=== PATIENT | female | born 1945 | race Caucasian/White ===

== ENCOUNTER 2017-11-13 14:32 | Emergency (ER) | payer MEDICARE, MEDICAID ==
[~2017-11-13] VITALS: Ht 149.9 cm; Wt 67.1 kg
[2017-11-13] MEDS ORDERED: IPRATROPIUM BROMIDE 0.5 MG/2.5 ML NEBU NEB ONE (15:00)
[2017-11-13] MEDS ORDERED: ONDANSETRON 4 MG/2 ML VIAL IV ONE (15:00)
[2017-11-13] MEDS ORDERED: IV NORMAL SALINE 500 ML BAG IV ONE (15:00)
[2017-11-13] MEDS ORDERED: ALBUTEROL SULFATE 2.5 MG/3 ML NEBU NEB ONE (15:00)
[2017-11-13] MEDS ORDERED: AZIT250T PO (15:08)
[2017-11-13] MEDS ORDERED: NEBI10TA2 PO (15:08)
[2017-11-13] MEDS ORDERED: GUAI600T53 PO (15:08)
[2017-11-13] MEDS ORDERED: BENZ-13 PO (15:08)
[2017-11-13] MEDS ORDERED: CLOP75TA15 PO (15:08)
[2017-11-13] MEDS ORDERED: IPRATROPIUM BROMIDE 0.5 MG/2.5 ML NEBU ONE (15:19)
[2017-11-13] MEDS ORDERED: ALBUTEROL SULFATE 2.5 MG/3 ML NEBU ONE (15:19)
[2017-11-13 15:21] LABS: BASOPHILS % (AUTO) 0.6 % (0.0-2.0); EOSINOPHILS % (AUTO) 0.5 % (0.0-7.0); HEMATOCRIT 39.9 % (31.2-41.9); HEMOGLOBIN 13.5 g/dL (10.9-14.3); LYMPHOCYTES # (AUTO) 3.3 K/uL (20.0-40.0); LYMPHOCYTES % (AUTO) 52.5 % (20.5-51.5); MEAN CORPUSCULAR HEMOGLOBIN 29.6 uug (24.7-32.8); MEAN CORPUSCULAR HGB CONC 34 g/dL (32.3-35.6); MEAN CORPUSCULAR VOLUME 87.1 fL (75.5-95.3); MONOCYTES # (AUTO) 0.5 K/uL (2.0-10.0); MONOCYTES % (AUTO) 7.8 % (0.0-11.0); NEUTROPHILS # (AUTO) 2.4 K/uL (1.8-8.9); NEUTROPHILS % (AUTO) 38.6 % (38.5-71.5); PLATELET COUNT (AUTO) 136 K/uL (179-408); RED BLOOD CELL COUNT(AUTO) 4.58 MIL/uL (3.63-4.92); WHITE BLOOD COUNT (AUTO) 6.2 K/uL (3.8-11.8)
[2017-11-13 15:30] LABS: CREATININE 1.4 mg/dL (0.6-1.3); POTASSIUM 4.3 mmol/L (3.5-5.1)
[2017-11-13] MEDS ORDERED: ONDANSETRON 4 MG/2 ML VIAL ONE (15:30)
--- NOTE | 2017-11-13 15:49 | NUR ---
Patient discharged to home in stable conditon. Written and verbal after care instructions given. Patient verbalizes understanding of instructions.pt walks in steady gait. pt says feels better. pt accompaned by daughter. translation ffrom kazakh provided by daughter.
[2017-11-13 15:50] VITALS: BP 134/74
== END 2017-11-13 15:52 | disposition home or self-care (01) ==
LOC: ER 14:32
DX: J40 Bronchitis, not specified as acute or chronic (principal); I70.0 Atherosclerosis of aorta; E11.9 Type 2 diabetes mellitus without complications
CPT/HCPCS: 36415; 70030-TC; 71045; 83605; 85025; 87040; 93005; A4663; J2405; J3590; J7040

== ENCOUNTER 2018-09-20 22:54 | Emergency (ER) | payer MEDICARE, MEDICAID ==
[~2018-09-20] VITALS: Ht 152.4 cm; Wt 68.0 kg
[~2018-09-20 22:54] MED LIST: AZIT250T PO; BENZ-13 PO; CLOP75TA15 PO; GUAI600T53 PO; NEBI10TA2 PO
--- NOTE | 2018-09-20 23:10 | NUR ---
Dr. Schilling at bedside for MSE.
[2018-09-20] MEDS ORDERED: CLONIDINE HCL 0.2 MG TABLET ONE (23:16)
[2018-09-20] MEDS: CLONIDINE HCL 0.2 MG TABLET PO ONE (23:17)
--- NOTE | 2018-09-21 00:10 | NUR ---
Patient discharged to home in stable conditon. Written and verbal after care instructions given. Patient verbalizes understanding of instructions. Patient ambulated out of ER with steady gait, no acute signs of distress, VSS, all belongings taken.
[2018-09-21 01:54] VITALS: BP 171/78
== END 2018-09-21 01:55 | disposition home or self-care (01) ==
LOC: ER 22:54
DX: I10 Essential (primary) hypertension (principal); E11.9 Type 2 diabetes mellitus without complications
CPT/HCPCS: A4663